=== PATIENT | female | born 1990 | race Caucasian/White ===

== ENCOUNTER 2016-11-02 09:16 | Emergency (ER) | payer OTHER ==
[~2016-11-02 09:16] MED LIST: /ACETCOD2T PO; /PREG50CA PO; ACET50TA OR; CEPH25SS OR; CYMB1CAP PO; IBUP200C PO; Lortab OR; NEUR300C PO; SOMA350T PO; ULTR200T2 PO; ULTR50TA PO; VICO5TAB16 PO; ZOFR4TAB3 SL
[2016-11-02] MEDS ORDERED: ONDANSETRON 4 MG ORAL DISINTEGRATING TAB (S0181) As Ordered ONE (09:55)
[2016-11-02] MEDS ORDERED: METOCLOPRAMIDE 10 MG TAB As Ordered ONE (09:55)
[2016-11-02] MEDS ORDERED: KETOROLAC 30 MG/ML VIAL (J1885) As Ordered ONE (09:56)
[2016-11-02] MEDS ORDERED: AUGMENTIN 875 MG TAB As Ordered ONE (10:25)
[2016-11-02] MEDS ORDERED: ACETAMINOPHEN 325 MG TAB As Ordered ONE (10:25)
--- NOTE | 2016-11-02 10:40 | EDDOCDS ---
Nurse's Notes [facility] Name: Lori Mendez Age: 26 yrs Sex: Female : 1990 Arrival Date: 11/02/2016 Time: 09:16 Bed PR Private MD: Shaka Lugo MD Diagnosis: Headache-Acute;Acute sinusitis Presentation: 11/02 09:22 Presenting complaint: Patient states: "woke up with a headache yesterday, it feels ten jc4 times worse today". This patient has no additional risk factors. Adult Sepsis Screening: The patient does not have new or worsening altered mentation. Patient's respiratory rate is less than 22. Systolic blood pressure is greater than 100. Patient has a qSOFA score of 0- Negative Sepsis Screen. Suicide/Homicide risk assessment- the patient denies having any suicidal and/or homicidal ideations and does not present with any other emotional, behavioral or mental health complaints. Status: Patient is not a volunteer services director or dependent. Transition of care: patient was not received from another setting of care. 09:22 Acuity: EPIFANIO Level 4 jc4 09:22 Method Of Arrival: Walkin/Carried/Asstd jc4 Triage Assessment: 09:25 Headache History: This headache is more severe than any previous headaches the patient jc4 has experienced. General: Appears uncomfortable. Pain: Pain currently is 8 out of 10 on a pain scale. Pain began 1 day ago Also complains of nausea, photophobia, shakiness. HIV screening NA for this visit Offered previously. Neurological: Level of Consciousness is awake, alert. RELOCATION MANAGER: 09:25 LMP N/A - control method jc4 Historical: - Allergies: Latex; - Home Meds: 1. naproxen 500 mg Oral TbEC 1 tab 2 times per day (Last dose: 10/30/2016) 2. tizanidine 2 mg oral cap 1 caps as needed (Last dose: 10/2016) 3. BCP 1 tab once daily (Last dose: 11/01/2016) - PMHx: Chronic Back pain; Migraine Headaches; - PSHx: ear surgery; nose surgery; back surgery; pelvis surgery; - Social history: Smoking status: Patient states former smoker of tobacco. No barriers to communication noted, The patient speaks fluent Indonesian. - Family history: Not pertinent. - : The pt / caregiver states he / she is not on anticoagulants. Home medication list is obtained from the patient. - Exposure Risk Screening:: None identified. Screenin:58 Screening information is obtained from the patient. Fall risk: No risks identified. jc4 Assistance ADL's: requires no assistance with activities of daily living. Abuse/DV Screen: The patient / caregiver reports he/she is: not in a situation that causes fear, pain or injury. Nutritional screening: No deficits noted. Advance Directives: Currently, there is no health care proxy. There is no active DNR order. There is no living will. There is no Power of Box Sealing Machine Catcher. home support is adequate. Assessment: 09:59 General: Appears uncomfortable, Behavior is cooperative, pleasant. Pain: Location: top jc4 of head, left frontal area and right frontal area Pain currently is 7 out of 10 on a pain scale. Neurological: Level of Consciousness is awake, alert, Oriented to person, place, time. EENT: Reports photophobia and noise sensitivity. Respiratory: Airway is patent Respiratory effort is even, unlabored, Respiratory pattern is regular, symmetrical. GI: Reports nausea. Derm: Skin is pink, warm & dry. Vital Signs: 09:17 BP 126 / 67; Pulse 81; Resp 18 S; Temp 97.4(O); Pulse Ox 98% on R/A; Weight 61.23 kg dd6 (R); Height 5 ft. 1 in. (154.94 cm) (R); 09:17 Body Mass Index 25.51 (61.23 kg, 154.94 cm) dd6 Vitals: 09:17 Log In Time: November 02, 2016 at 09:15. dd6 ED Course: 09:16 Patient visited by Isaiah Lazaro PCA. dd6 09:16 Patient moved to Waiting dd6 09:17 Shaka Lugo is Private Physician. dd6 09:18 Patient moved to Pre RCE dd6 09:22 Patient moved to Triage 1 jc4 09:23 Triage Initiated jc4 09:25 [facility] ef1 09:25 Lacy Muro MD is Attending Physician. ef1 09:25 Patient visited by Dina Brown PA-C. ef1 09:45 [place] [place] was scanned into [employer] and attached to record. jp5 09:57 Patient moved to PR / jc4 09:58 The patient / caregiver is instructed regarding the plan of care and ED course. jc4 10:00 Patient visited by Viridiana Walker RN. jc4 10:21 Patient visited by Dina Brown PA-C. ef1 10:25 ParishShaka is Referral Physician. ef1 10:39 No IV's were initiated during this patient's visit. No procedures done that require dls assistance. Administered Medications: 10:02 Drug: ketorolac 60 mg [ketorolac 30 mg/mL (1 mL) injection solution (2 mL)] Route: IM; ead Site: left gluteus; 10:02 Drug: Ondansetron ODT 4 mg [ondansetron 4 mg disintegrating tablet (1 tabs)] Route: PO; ead 10:02 Drug: Metoclopramide 10 mg [metoclopramide 10 mg tablet (1 tabs)] Route: PO; ead 10:28 Drug: Amoxicillin-Clavulanate 1 tabs [amoxicillin 875 mg-potassium clavulanate 125 mg jc4 tablet (1 tabs)] Route: PO; 10:28 Drug: Acetaminophen 975 mg [acetaminophen 325 mg tablet (3 tabs)] Route: PO; jc4 Order Results: There are currently no results for this order. Outcome: 10:25 Discharge ordered by Provider. ef1 10:38 Discharge Assessment: Patient awake, alert and oriented x 3. No cognitive and/or dls functional deficits noted. Patient verbalized understanding of disposition instructions. patient administered narcotics - no. The following High Risk Discharge criteria are identified: None. Discharged to home ambulatory. Condition: stable. Discharge instructions given to patient, Instructed on discharge instructions, follow up and referral plans. medication usage, Demonstrated understanding of instructions, medications, Pt was receptive of discharge instructions/ teaching. Prescriptions given X 4. No special radiology studies were completed. Property sent home with patient. 10:39 Patient left the ED. dls Signatures: Tennille Nunez RN RN dls Desormeau, Daniell, PROTOTYPE ASSEMBLER ELECTRONICS PROTOTYPE ASSEMBLER ELECTRONICS dd6 Dina Brown PA-C PA-C ef1 Viridiana Walker RN RN jcCyndi Rod RN RN ead Price, Jennalee jp5 SHANE
--- NOTE | 2016-11-02 10:40 | EDDOCDS ---
Physician Documentation [facility] Name: Lori Mendez Age: 26 yrs Sex: Female : 1990 Arrival Date: 11/02/2016 Time: 09:16 Bed PR Private MD: Shaka Lugo MD Disposition: 11/02/16 10:25 Discharged to Home/Self Care. Impression: Headache - Acute, Acute sinusitis. - Condition is Stable. - Discharge Instructions: General Headache Without Cause, Sinusitis, [id number]. - Prescriptions for Augmentin 875- 125 mg Oral Tablet - take 1 tablet by ORAL route every 12 hours for 10 days; 20 tablet. Naprosyn 500 mg Oral Tablet - take 1 tablet by ORAL route 2 times per day take with food; 30 tablet. Claritin 10 mg Oral Tablet - take 1 tablet by ORAL route once daily As needed; 30 tablet. ZOFRAN ODT 4 mg - dissolve 1 tablet by ORAL route 4 times per day As needed do not chew, do not swallow whole; 10 tablet. Mucinex 600 mg - take 1 tablet by ORAL route 2 times per day; 30 tablet. - Medication Reconciliation, Local Pharmacy Hours form. - Follow up: Shaka Lugo; When: 1 - 2 days; Reason: Recheck today's complaints, Continuance of care. Follow up: Emergency Department; Reason: Worsening of conditions. - Problem is new. - Symptoms have improved. Historical: - Allergies: Latex; - Home Meds: 1. naproxen 500 mg Oral TbEC 1 tab 2 times per day (Last dose: 10/30/2016) 2. tizanidine 2 mg oral cap 1 caps as needed (Last dose: 10/2016) 3. BCP 1 tab once daily (Last dose: 11/01/2016) - PMHx: Chronic Back pain; Migraine Headaches; - PSHx: ear surgery; nose surgery; back surgery; pelvis surgery; - Social history: Smoking status: Patient states former smoker of tobacco. No barriers to communication noted, The patient speaks fluent Japanese. - Family history: Not pertinent. - : The pt / caregiver states he / she is not on anticoagulants. Home medication list is obtained from the patient. - Exposure Risk Screening:: None identified. 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 1 in. (154.94 cm) (R); 09:17 Body Mass Index 25.51 (61.23 kg, 154.94 cm) dd6 MDM: 09:45 [facility] Payment Agreement was scanned into [employer] and attached to record. jp5 09:45 Financial registration complete. jp5 09:51 ketorolac 60 mg IM once ordered. ef1 09:51 Ondansetron ODT Oral Disintegrating Tablet 4 mg PO once ordered. ef1 09:51 Metoclopramide 10 mg PO once ordered. ef1 09:51 Amoxicillin-Clavulanate 875 mg 1 tabs PO once ordered. ef1 09:51 Ice Pack ordered. ef1 10:22 Acetaminophen Tablet 975 mg PO once ordered. ef1 10:22 Fluid Challenge ordered. ef1 Administered Medications: 10:02 Drug: ketorolac 60 mg [ketorolac 30 mg/mL (1 mL) injection solution (2 mL)] Route: IM; ead Site: left gluteus; 10:02 Drug: Ondansetron ODT 4 mg [ondansetron 4 mg disintegrating tablet (1 tabs)] Route: PO; ead 10:02 Drug: Metoclopramide 10 mg [metoclopramide 10 mg tablet (1 tabs)] Route: PO; ead 10:28 Drug: Amoxicillin-Clavulanate 1 tabs [amoxicillin 875 mg-potassium clavulanate 125 mg jc4 tablet (1 tabs)] Route: PO; 10:28 Drug: Acetaminophen 975 mg [acetaminophen 325 mg tablet (3 tabs)] Route: PO; jc4 Signatures: Tennille Nunez RN RN dls Feola, Erica, PA-C PAAnum ef1 Viridiana Walker RN RN jc4 Miguelito Neil jp5 Cyndi Ugarte RN The chart was reviewed and I authenticate all verbal orders and agree with the evaluation and treatment provided.Attachments: 09:45 [facility] Payment Agreement 5 MTDD
--- NOTE | 2016-11-04 11:40 | EDDOCDS ---
Nurse's Notes [facility] Name: Lori Mendez Age: 26 yrs Sex: Female : 1990 Arrival Date: 11/02/2016 Time: 09:16 Bed PR Private MD: Shaka Lugo MD Diagnosis: Headache-Acute;Acute sinusitis Presentation: 11/02 09:22 Presenting complaint: Patient states: "woke up with a headache yesterday, it feels ten jc4 times worse today". This patient has no additional risk factors. Adult Sepsis Screening: The patient does not have new or worsening altered mentation. Patient's respiratory rate is less than 22. Systolic blood pressure is greater than 100. Patient has a qSOFA score of 0- Negative Sepsis Screen. Suicide/Homicide risk assessment- the patient denies having any suicidal and/or homicidal ideations and does not present with any other emotional, behavioral or mental health complaints. Status: Patient is not a rehabilitation services counselor or dependent. Transition of care: patient was not received from another setting of care. 09:22 Acuity: EPIFANIO Level 4 jc4 09:22 Method Of Arrival: Walkin/Carried/Asstd jc4 Triage Assessment: 09:25 Headache History: This headache is more severe than any previous headaches the patient jc4 has experienced. General: Appears uncomfortable. Pain: Pain currently is 8 out of 10 on a pain scale. Pain began 1 day ago Also complains of nausea, photophobia, shakiness. HIV screening NA for this visit Offered previously. Neurological: Level of Consciousness is awake, alert. 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 naproxen 500 mg Oral TbEC 1 tab 2 times per day (Last dose: 10/30/2016) 2. tizanidine 2 mg oral cap 1 caps as needed (Last dose: 10/2016) 3. BCP 1 tab once daily (Last dose: 11/01/2016) - PMHx: Chronic Back pain; Migraine Headaches; - PSHx: ear surgery; nose surgery; back surgery; pelvis surgery; - Social history: Smoking status: Patient states former smoker of tobacco. No barriers to communication noted, The patient speaks fluent [place]an. - Family history: Not pertinent. - : The pt / caregiver states he / she is not on anticoagulants. Home medication list is obtained from the patient. - Exposure Risk Screening:: None identified. Screenin:58 Screening information is obtained from the patient. Fall risk: No risks identified. jc4 Assistance ADL's: requires no assistance with activities of daily living. Abuse/DV Screen: The patient / caregiver reports he/she is: not in a situation that causes fear, pain or injury. Nutritional screening: No deficits noted. Advance Directives: Currently, there is no health care proxy. There is no active DNR order. There is no living will. There is no Power of Bull Fiddle Player. home support is adequate. Assessment: 09:59 General: Appears uncomfortable, Behavior is cooperative, pleasant. Pain: Location: top jc4 of head, left frontal area and right frontal area Pain currently is 7 out of 10 on a pain scale. Neurological: Level of Consciousness is awake, alert, Oriented to person, place, time. EENT: Reports photophobia and noise sensitivity. Respiratory: Airway is patent Respiratory effort is even, unlabored, Respiratory pattern is regular, symmetrical. GI: Reports nausea. Derm: Skin is pink, warm & dry. Vital Signs: 09:17 BP 126 / 67; Pulse 81; Resp 18 S; Temp 97.4(O); Pulse Ox 98% on R/A; Weight 61.23 kg dd6 (R); Height 5 ft. 1 in. (154.94 cm) (R); 09:17 Body Mass Index 25.51 (61.23 kg, 154.94 cm) dd6 Vitals: 09:17 Log In Time: November 02, 2016 at 09:15. dd6 ED Course: 09:16 Patient visited by Isaiah Lazaro PCA. dd6 09:16 Patient moved to Waiting dd6 09:17 Shaka Lugo is Private Physician. dd6 09:18 Patient moved to Pre RCE dd6 09:22 Patient moved to Triage 1 jc4 09:23 Triage Initiated jc4 09:25 Dina Brown [facility]-C [facility]. ef1 09:25 Lacy Muro MD is Attending Physician. ef1 09:25 Patient visited by Dina Brown PA-C. ef1 09:45 [place] [place] Payment Agreement was scanned into [employer] and attached to record. jp5 09:57 Patient moved to PR2 / 26 jc4 09:58 The patient / caregiver is instructed regarding the plan of care and ED course. jc4 10:00 Patient visited by Viridiana Walker RN. jc4 10:21 Patient visited by Dina Brown PA-C. ef1 10:25 Parish Shaka is Referral Physician. ef1 10:39 No IV's were initiated during this patient's visit. No procedures done that require dls assistance. 14:46 T-Sheet-- Draft Copy was scanned into [employer] and attached to record. gb Administered Medications: 10:02 Drug: ketorolac 60 mg [ketorolac 30 mg/mL (1 mL) injection solution (2 mL)] Route: IM; ead Site: left gluteus; 10:02 Drug: Ondansetron ODT 4 mg [ondansetron 4 mg disintegrating tablet (1 tabs)] Route: PO; ead 10:02 Drug: Metoclopramide 10 mg [metoclopramide 10 mg tablet (1 tabs)] Route: PO; ead 10:28 Drug: Amoxicillin-Clavulanate 1 tabs [amoxicillin 875 mg-potassium clavulanate 125 mg jc4 tablet (1 tabs)] Route: PO; 10:28 Drug: Acetaminophen 975 mg [acetaminophen 325 mg tablet (3 tabs)] Route: PO; jc4 Order Results: There are currently no results for this order. Outcome: 10:25 Discharge ordered by Provider. ef1 10:38 Discharge Assessment: Patient awake, alert and oriented x 3. No cognitive and/or dls functional deficits noted. Patient verbalized understanding of disposition instructions. patient administered narcotics - no. The following High Risk Discharge criteria are identified: None. Discharged to home ambulatory. Condition: stable. Discharge instructions given to patient, Instructed on discharge instructions, follow up and referral plans. medication usage, Demonstrated understanding of instructions, medications, Pt was receptive of discharge instructions/ teaching. Prescriptions given X 4. No special radiology studies were completed. Property sent home with patient. 10:39 Patient left the ED. dls Signatures: Tennille Nunez RN RN dls Janet Car, Reg Reg gb Isaiah Lazaro, MANAGER TECHNICAL SALES MANAGER TECHNICAL SALES dd6 Dina Brown PA-C PA-C ef1 Viridiana Walker, RN RN jc4 Cyndi Ugarte,RN RN Miguelito Iyer jp5 Chart Complete MTDD
--- NOTE | 2016-11-04 11:40 | EDDOCDS ---
Physician Documentation [facility] Name: Lori Mendez Age: 26 yrs Sex: Female : 1990 Arrival Date: 11/02/2016 Time: 09:16 Bed PR Private MD: Shaka Lugo MD Disposition: 11/02/16 10:25 Discharged to Home/Self Care. Impression: Headache - Acute, Acute sinusitis. - Condition is Stable. - Discharge Instructions: General Headache Without Cause, Sinusitis, [id number]. - Prescriptions for Augmentin 875- 125 mg Oral Tablet - take 1 tablet by ORAL route every 12 hours for 10 days; 20 tablet. Naprosyn 500 mg Oral Tablet - take 1 tablet by ORAL route 2 times per day take with food; 30 tablet. Claritin 10 mg Oral Tablet - take 1 tablet by ORAL route once daily As needed; 30 tablet. ZOFRAN ODT 4 mg - dissolve 1 tablet by ORAL route 4 times per day As needed do not chew, do not swallow whole; 10 tablet. Mucinex 600 mg - take 1 tablet by ORAL route 2 times per day; 30 tablet. - Medication Reconciliation, Local Pharmacy Hours form. - Follow up: Shaka Lugo; When: 1 - 2 days; Reason: Recheck today's complaints, Continuance of care. Follow up: Emergency Department; Reason: Worsening of conditions. - Problem is new. - Symptoms have improved. Historical: - Allergies: Latex; - Home Meds: 1. naproxen 500 mg Oral TbEC 1 tab 2 times per day (Last dose: 10/30/2016) 2. tizanidine 2 mg oral cap 1 caps as needed (Last dose: 10/2016) 3. BCP 1 tab once daily (Last dose: 11/01/2016) - PMHx: Chronic Back pain; Migraine Headaches; - PSHx: ear surgery; nose surgery; back surgery; pelvis surgery; - Social history: Smoking status: Patient states former smoker of tobacco. No barriers to communication noted, The patient speaks fluent Turkish. - Family history: Not pertinent. - : The pt / caregiver states he / she is not on anticoagulants. Home medication list is obtained from the patient. - Exposure Risk Screening:: None identified. 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 1 in. (154.94 cm) (R); 09:17 Body Mass Index 25.51 (61.23 kg, 154.94 cm) dd6 MDM: 09:45 [place] [place] Agreement was scanned into [employer] and attached to record. 5 09:45 Financial registration complete. jp5 09:51 ketorolac 60 mg IM once ordered. ef1 09:51 Ondansetron ODT Oral Disintegrating Tablet 4 mg PO once ordered. ef1 09:51 Metoclopramide 10 mg PO once ordered. ef1 09:51 Amoxicillin-Clavulanate 875 mg 1 tabs PO once ordered. ef1 09:51 Ice Pack ordered. ef1 10:22 Acetaminophen Tablet 975 mg PO once ordered. ef1 10:22 Fluid Challenge ordered. ef1 14:46 T-Sheet-- Draft Copy was scanned into [employer] and attached to record. gb Administered Medications: 10:02 Drug: ketorolac 60 mg [ketorolac 30 mg/mL (1 mL) injection solution (2 mL)] Route: IM; ead Site: left gluteus; 10:02 Drug: Ondansetron ODT 4 mg [ondansetron 4 mg disintegrating tablet (1 tabs)] Route: PO; ead 10:02 Drug: Metoclopramide 10 mg [metoclopramide 10 mg tablet (1 tabs)] Route: PO; ead 10:28 Drug: Amoxicillin-Clavulanate 1 tabs [amoxicillin 875 mg-potassium clavulanate 125 mg jc4 tablet (1 tabs)] Route: PO; 10:28 Drug: Acetaminophen 975 mg [acetaminophen 325 mg tablet (3 tabs)] Route: PO; jc4 Signatures: Tennille Nunez RN Janet Scherer, Reg Reg gb Dina Brown, PARosa MariaC PAAnum ef1 Viridiana Walker RN RN jc4 Miguelito Neil 5 Cyndi Ugarte RN, ead The chart was reviewed and I authenticate all verbal orders and agree with the evaluation and treatment provided.Attachments: 09:45 [facility] Payment Agreement jp5 14:46 T-Sheet-- Draft Copy gb Chart Complete MTDD
--- NOTE | 2016-11-04 11:40 | EDDOCDS ---
Physician Documentation [facility] Name: Lori Mendez Age: 26 yrs Sex: Female : 1990 Arrival Date: 11/02/2016 Time: 09:16 Bed PR Private MD: Shaka Lugo MD Disposition: 11/02/16 10:25 Discharged to Home/Self Care. Impression: Headache - Acute, Acute sinusitis. - Condition is Stable. - Discharge Instructions: General Headache Without Cause, Sinusitis, [id number]. - Prescriptions for Augmentin 875- 125 mg Oral Tablet - take 1 tablet by ORAL route every 12 hours for 10 days; 20 tablet. Naprosyn 500 mg Oral Tablet - take 1 tablet by ORAL route 2 times per day take with food; 30 tablet. Claritin 10 mg Oral Tablet - take 1 tablet by ORAL route once daily As needed; 30 tablet. ZOFRAN ODT 4 mg - dissolve 1 tablet by ORAL route 4 times per day As needed do not chew, do not swallow whole; 10 tablet. Mucinex 600 mg - take 1 tablet by ORAL route 2 times per day; 30 tablet. - Medication Reconciliation, Local Pharmacy Hours form. - Follow up: Shaka Lugo; When: 1 - 2 days; Reason: Recheck today's complaints, Continuance of care. Follow up: Emergency Department; Reason: Worsening of conditions. - Problem is new. - Symptoms have improved. Historical: - Allergies: Latex; - Home Meds: 1. naproxen 500 mg Oral TbEC 1 tab 2 times per day (Last dose: 10/30/2016) 2. tizanidine 2 mg oral cap 1 caps as needed (Last dose: 10/2016) 3. BCP 1 tab once daily (Last dose: 11/01/2016) - PMHx: Chronic Back pain; Migraine Headaches; - PSHx: ear surgery; nose surgery; back surgery; pelvis surgery; - Social history: Smoking status: Patient states former smoker of tobacco. No barriers to communication noted, The patient speaks fluent Maltese. - Family history: Not pertinent. - : The pt / caregiver states he / she is not on anticoagulants. Home medication list is obtained from the patient. - Exposure Risk Screening:: None identified. NUT FORMER: 11/02 09:25 LMP N/A - control method jc4 Vital Signs: 09:17 BP 126 / 67; Pulse 81; Resp 18 S; Temp 97.4(O); Pulse Ox 98% on R/A; Weight 61.23 kg / dd6 134.99 lbs (R); Height 5 ft. 1 in. (154.94 cm) (R); 09:17 Body Mass Index 25.51 (61.23 kg, 154.94 cm) dd6 MDM: 09:45 [place] [place] Payment Agreement was scanned into [employer] and attached to record. 5 09:45 Financial registration complete. jp5 09:51 ketorolac 60 mg IM once ordered. ef1 09:51 Ondansetron ODT Oral Disintegrating Tablet 4 mg PO once ordered. ef1 09:51 Metoclopramide 10 mg PO once ordered. ef1 09:51 Amoxicillin-Clavulanate 875 mg 1 tabs PO once ordered. ef1 09:51 Ice Pack ordered. ef1 10:22 Acetaminophen Tablet 975 mg PO once ordered. ef1 10:22 Fluid Challenge ordered. ef1 14:46 T-Sheet-- Draft Copy was scanned into [employer] and attached to record. gb Administered Medications: 10:02 Drug: ketorolac 60 mg [ketorolac 30 mg/mL (1 mL) injection solution (2 mL)] Route: IM; ead Site: left gluteus; 10:02 Drug: Ondansetron ODT 4 mg [ondansetron 4 mg disintegrating tablet (1 tabs)] Route: PO; ead 10:02 Drug: Metoclopramide 10 mg [metoclopramide 10 mg tablet (1 tabs)] Route: PO; ead 10:28 Drug: Amoxicillin-Clavulanate 1 tabs [amoxicillin 875 mg-potassium clavulanate 125 mg jc4 tablet (1 tabs)] Route: PO; 10:28 Drug: Acetaminophen 975 mg [acetaminophen 325 mg tablet (3 tabs)] Route: PO; jc4 Signatures: Tennille Nunez RN Janet Scherer, Reg Reg gb Dina Brown, PARosa MariaC PAAnum ef1 Viridiana Walker RN RN jc4 Miguelito Neil 5 Cyndi Ugarte RN, ead The chart was reviewed and I authenticate all verbal orders and agree with the evaluation and treatment provided.Attachments: 09:45 [facility] Payment Agreement jp5 14:46 T-Sheet-- Draft Copy gb Chart Complete MTDD
== END 2016-11-02 10:39 | disposition home or self-care (01) ==
LOC: M ED 09:16
DX: J01.90 Acute sinusitis, unspecified (principal); R51 Headache; M54.9 Dorsalgia, unspecified; G89.29 Other chronic pain; Z87.891 Personal history of nicotine dependence; Z79.891 Long term (current) use of opiate analgesic; Z91.040 Latex allergy status
CPT/HCPCS: 96372; 99283; J1885

== ENCOUNTER → 2016-11-11 | Outpatient (CLI) | payer BC ==
[2016-11-11 16:45] LABS: INR 0.9
[2016-11-11 17:00] LABS: CONTROL LINE HCG INT CTR LINE PRESENT
== END ==
LOC: M LAB 15:45
PROVIDERS: ATTEND Physical Medicine & Rehabilitation
DX: M48.06 Spinal stenosis, lumbar region (principal)

== ENCOUNTER → 2017-12-02 | Outpatient (CLI) | payer BC ==
[2017-12-02 18:02] LABS: BASO % 0.5 % (0.0-1.0); EOS # 0.1 10^3/uL (0.0-0.50); EOS % 1.9 % (0.0-3.0); HEMOGLOBIN 13.1 g/dl (12.0-16.0); IMMATURE GRANULOCYTE % 0.2 % (0-3.0); LYMPH # 1.6 10^3/uL (1.5-6.5); LYMPH % 37.6 % (24.0-44.0); MEAN CORPUSCULAR HEMOGLOBIN 28.7 pg (27.0-33.0); MEAN CORPUSCULAR HGB CONC 32.8 g/dl (32.0-36.5); MEAN CORPUSCULAR VOLUME 87.5 fl (80.0-96.0); MONO # 0.3 10^3/uL (0.0-0.8); MONO % 8.1 % (0.0-5.0); NEUTROPHILS # 2.2 10^3/uL (1.8-7.7); NEUTROPHILS % 51.7 % (36.0-66.0); PLATELET COUNT, AUTOMATED 206 10^3/uL (150-450); RED BLOOD COUNT 4.57 10^6/uL (4.00-5.40); RED CELL DISTRIBUTION WIDTH 12.2 % (11.5-14.5); WHITE BLOOD COUNT 4.2 10^3/uL (4.0-10.0)
[2017-12-02 18:53] LABS: PROLACTIN 12.4 NG/ML
[2017-12-02 19:03] LABS: FREE T4 0.93 NG/DL (0.76-1.46)
== END ==
LOC: M WUC 10:53
DX: N92.0 Excessive and frequent menstruation with regular cycle (principal)
CPT/HCPCS: 84146

== ENCOUNTER → 2017-12-29 | Outpatient (REF) | payer BC, OTHER | LOC: M LAB REF 16:23 | DX: J02.9 Acute pharyngitis, unspecified (principal) | CPT/HCPCS: 87070 ==

== ENCOUNTER 2018-02-21 10:50 | Outpatient (RCR) | payer BC | END 2018-03-17 | LOC: M PT 10:50 | DX: Z51.89 Encounter for other specified aftercare (principal); M51.36 Other intervertebral disc degeneration, lumbar region; M47.816 Spondylosis without myelopathy or radiculopathy, lumbar region ==

== ENCOUNTER 2018-03-18 14:52 | Emergency (ER) | payer OTHER, BC ==
[2018-03-18] MEDS: KETOROLAC 60 MG/2 ML VIAL (J1885) IM (15:51)
== END 2018-03-18 17:00 | disposition home or self-care (01) ==
LOC: M ED 14:52
DX: S39.002A Unspecified injury of muscle, fascia and tendon of lower back, initial encounter (principal); X50.9XXA Other and unspecified overexertion or strenuous movements or postures, initial encounter; Y92.59 Other trade areas as the place of occurrence of the external cause; Y99.0 Civilian activity done for income or pay; Z91.040 Latex allergy status
CPT/HCPCS: J1885

== ENCOUNTER → 2018-12-01 | Outpatient (CLI) | payer OTHER ==
[~2018-12-01] MED LIST changes: +NORCOTAB PO; +ROBA500T PO
[2018-12-01 18:35] LABS: BASO % 0.2 % (0.0-1.0); EOS % 0.7 % (0.0-3.0); HEMATOCRIT 35.4 % (36.0-47.0); LYMPH # 1.5 10^3/uL (1.5-6.5); LYMPH % 24.7 % (24.0-44.0); MEAN CORPUSCULAR HEMOGLOBIN 29.1 pg (27.0-33.0); MEAN CORPUSCULAR HGB CONC 33.9 g/dl (32.0-36.5); MEAN CORPUSCULAR VOLUME 85.7 fl (80.0-96.0); MONO # 0.4 10^3/uL (0.0-0.8); MONO % 6.7 % (0.0-5.0); NEUTROPHILS # 4.2 10^3/uL (1.8-7.7); NEUTROPHILS % 67.5 % (36.0-66.0); PLATELET COUNT, AUTOMATED 236 10^3/uL (150-450); RED BLOOD COUNT 4.13 10^6/uL (4.00-5.40); WHITE BLOOD COUNT 6.2 10^3/uL (4.0-10.0)
[2018-12-01 19:38] LABS: CHLAMYDIA DNA AMPLIFICATION NEGATIVE (NEGATIVE); GC DNA AMPLIFICATION NEGATIVE (NEGATIVE)
[2018-12-02 12:43] LABS: HEPATITIS C VIRUS ABY INDEX 0.1 INDEX (<0.8); HIV 1&2 SCREEN CENTAUR NEGATIVE (NEGATIVE); RUBELLA IgG QUALITATIVE IMMUNE (IMMUNE)
== END ==
LOC: M SMT 15:05
PROVIDERS: ATTEND Advanced Practice Midwife
DX: Z36.89 Encounter for other specified antenatal screening (principal)

== ENCOUNTER → 2019-01-31 | Outpatient (CLI) | payer BC, OTHER ==
[~2019-01-31] MED LIST changes: -/ACETCOD2T PO; -/PREG50CA PO; +ACET1TAB15 PO; -ACET50TA OR; +HYDR-3715 PO; +LYRI50CA PO; +MAPA500T17 OR; -NORCOTAB PO; +ONDA-228 SL; -ZOFR4TAB3 SL
== END ==
LOC: M SMT 10:52
PROVIDERS: ATTEND Advanced Practice Midwife
DX: Z34.82 Encounter for supervision of other normal pregnancy, second trimester (principal)

== ENCOUNTER → 2019-02-20 | Outpatient (CLI) | payer MEDICAID ==
--- NOTE | 2019-02-20 14:08 | REP ---
REASON: anatomy. PRIORS: None. Multiple ultrasonographic image of the gravid uterus show a single living intrauterine gestation in the cephalic presentation. Doppler interrogation heart shows a heart rate of 160 beats per minute. The placenta is fundal and not low lying. The subjective amniotic fluid volume is within normal limits. The cervix measures 4.5 cm in length and is closed. Evaluation of the maternal adnexal spaces showed no abnormalities. BPD 4.5 cm = 19 weeks 3 days HC 16.2 cm = 19 weeks 0 days AC 13.4 cm = 18 weeks 6 days FL 2.9 cm = 19 weeks 0 days The estimated weight is 267 grams, which is at the 31st percentile for a 10-ygrk-5-day gestation age. Structures visualized as unremarkable are as follows: Thalami, cavum septum pellucidum, cerebellum, cisterna magna, cerebral ventricles, spine, kidneys, urinary bladder, stomach, cord insertion, three-vessel umbilical cord, extremities, and right ventricular outflow tract. Structures suboptimally visualized: upper lip, four-chamber heart, and left ventricular outflow tract. IMPRESSION: Single living intrauterine gestation as described above with an estimated gestational age of 19 weeks 1 day via composite criteria and estimated date of delivery 07/16/2019 by today's exam. No anomalies were detected, however, I recommend a followup examination to evaluate the upper lip, four chamber heart, and left ventricular outflow tract. Electronically Signed by Jose Kahn DO 02/20/2019 04:36 P
== END ==
LOC: M RAD 11:29
PROVIDERS: ATTEND Advanced Practice Midwife
DX: Z34.82 Encounter for supervision of other normal pregnancy, second trimester (principal); Z36.89 Encounter for other specified antenatal screening; Z3A.19 19 weeks gestation of pregnancy

== ENCOUNTER → 2019-03-17 | Outpatient (CLI) | payer MEDICAID ==
--- NOTE | 2019-03-17 13:44 | REP ---
Clinical: Anatomical evaluation. Comparison: 02/20/2019 . Findings: Examination demonstrates a single live intrauterine in variable presentation. motion is identified by technologist. Placenta is noted anterior/fundal and grade one without evidence for placenta previa or abruption. Amniotic fluid volume is normal. Cervix measures 4.1 cm in length and appears closed. No evidence for nuchal cord. Gestational age by LMP 23 week 0 days with KAREN 07/14/2019 . Gestational age by current measurements 22 weeks 3 days with KAREN 07/18/2019 . FHR equals 155 beats per minute. Estimated weight 503 grams ( 28th percentile). Anatomical assessment demonstrates normal structures including cranium, choroid plexus, cavum, cerebellum/posterior fossa, facial features, lungs, four-chamber heart/ventricular outflow tracts, diaphragm, stomach, cord insertion/three-vessel cord, kidneys/bladder, and extremities. Impression: Single live intrauterine in variable presentation demonstrating appropriate interval growth. In conjunction with prior examination anatomical assessment is complete and normal. No gross abnormalities are identified. Electronically Signed by Navi Graham MD 03/17/2019 01:36 P
== END ==
LOC: M RAD 11:30
PROVIDERS: ATTEND Advanced Practice Midwife
DX: Z34.02 Encounter for supervision of normal first pregnancy, second trimester (principal); Z36.89 Encounter for other specified antenatal screening; Z3A.23 23 weeks gestation of pregnancy

== ENCOUNTER → 2019-04-14 | Outpatient (CLI) | payer MEDICAID ==
[2019-04-14 13:20] LABS: BASO % 0.3 % (0.0-1.0); EOS # 0.1 10^3/uL (0.0-0.50); EOS % 1.6 % (0.0-3.0); HEMATOCRIT 34.2 % (36.0-47.0); HEMOGLOBIN 11.3 g/dl (12.0-15.5); LYMPH # 1.5 10^3/uL (1.5-6.5); LYMPH % 17.7 % (24.0-44.0); MEAN CORPUSCULAR HEMOGLOBIN 30.8 pg (27.0-33.0); MEAN CORPUSCULAR VOLUME 93.2 fl (80.0-96.0); MONO # 0.6 10^3/uL (0.0-0.8); MONO % 6.4 % (0.0-5.0); NEUTROPHILS # 6.3 10^3/uL (1.8-7.7); NEUTROPHILS % 73.2 % (36.0-66.0); PLATELET COUNT, AUTOMATED 202 10^3/uL (150-450); RED BLOOD COUNT 3.67 10^6/uL (4.00-5.40); WHITE BLOOD COUNT 8.6 10^3/uL (4.0-10.0)
== END ==
LOC: M SMT 08:57
PROVIDERS: ATTEND Specialist
DX: Z34.82 Encounter for supervision of other normal pregnancy, second trimester (principal); Z36.89 Encounter for other specified antenatal screening

== ENCOUNTER 2019-04-30 10:29 | Emergency (ER) | payer MEDICAID, OTHER ==
[~2019-04-30] VITALS: Ht 154.9 cm; Wt 81.8 kg
[2019-04-30 11:38] LABS: BLOOD UREA NITROGEN 10 MG/DL (7-18); CALCIUM LEVEL 8.5 MG/DL (8.5-10.1); CARBON DIOXIDE LEVEL 25 MEQ/L (21-32); CHLORIDE LEVEL 107 MEQ/L (98-107); CREATININE FOR GFR 0.52 MG/DL (0.55-1.30); GLOMERULAR FILTRATION RATE > 60.0 (>60); GLUCOSE, FASTING 85 MG/DL (70-100); POTASSIUM SERUM 4.6 MEQ/L (3.5-5.1); SODIUM LEVEL 140 MEQ/L (136-145)
[2019-04-30 12:42] VITALS: BP 121/64
--- NOTE | 2019-05-01 10:29 | REP ---
Duplex extremity venous ultrasound: Bilateral lower extremity. History: Bilateral leg pain. 30 weeks gestation. Question DVT. Findings: The deep veins are anechoic and fully compressible from the groin to the popliteal fossa in the left and right lower extremity. Color flow imaging is homogeneous. Spectral Doppler interrogation demonstrates intact respiratory variation in flow and normal manual augmentation of flow. There is no evidence of deep vein thrombosis. Impression: Negative bilateral lower extremity duplex venous ultrasound. No evidence of deep vein thrombosis. Electronically Signed by Ian Noriega MD 04/30/2019 12:05 P
== END 2019-04-30 12:47 | disposition home or self-care (01) ==
LOC: M ED 10:29
DX: O26.893 Other specified pregnancy related conditions, third trimester (principal); R25.2 Cramp and spasm; Z3A.30 30 weeks gestation of pregnancy; Z91.040 Latex allergy status

== ENCOUNTER → 2019-06-16 | Outpatient (CLI) | payer OTHER, MEDICAID ==
[~2019-06-16] MED LIST changes: +IBUP80TA PO; +OXYC1TAB23 PO
== END ==
LOC: M SMT 12:21
PROVIDERS: ATTEND Advanced Practice Midwife
DX: Z34.03 Encounter for supervision of normal first pregnancy, third trimester (principal); Z3A.00 Weeks of gestation of pregnancy not specified

== ENCOUNTER 2019-07-07 05:34 | Inpatient (IN) | payer OTHER ==
[~2019-07-07] VITALS: Ht 154.9 cm; Wt 89.2 kg
[2019-07-07] VITALS (8 sets, daily range): BP systolic 91–119; BP diastolic 52–59
[~2019-07-07 05:34] MED LIST changes: -IBUP80TA PO; -OXYC1TAB23 PO
[2019-07-07] MEDS ORDERED: LACTATED RINGER'S 1000 ML IV STA (08:08)
[2019-07-07] MEDS ORDERED: LR 1,000 ML IV SCH ×3 (08:08→12:00)
[2019-07-07] MEDS ORDERED: BICITRA 30ML SOLN UDC PO ONE (08:15)
[2019-07-07 08:31] LABS: HEMATOCRIT 33.6 % (36.0-47.0); HEMOGLOBIN 11.4 g/dl (12.0-15.5); MEAN CORPUSCULAR HEMOGLOBIN 30.9 pg (27.0-33.0); MEAN CORPUSCULAR HGB CONC 33.9 g/dl (32.0-36.5); MEAN CORPUSCULAR VOLUME 91.1 fl (80.0-96.0); PLATELET COUNT, AUTOMATED 232 10^3/uL (150-450); RED BLOOD COUNT 3.69 10^6/uL (4.00-5.40); WHITE BLOOD COUNT 10.7 10^3/uL (4.0-10.0)
[2019-07-07] MEDS: PRENATAL VITAMINS CHEWABLE TABLET PO SCH (09:00)
[2019-07-07] MEDS ORDERED: MORPHINE PRES-FREE INJ 10 MG/10 ML VIAL (J2274) As Ordered ONE (09:26)
[2019-07-07] MEDS ORDERED: ONDANSETRON 4MG/2ML VIAL (J2405) IV PRN ×3 (09:52→11:15)
[2019-07-07] MEDS ORDERED: NALOXONE INJ 0.4 MG/1 ML VIAL (J2310) IV PRN ×2 (09:52)
[2019-07-07] MEDS ORDERED: METOCLOPRAMIDE INJ 10MG/2ML VIAL (J2765) IV PRN ×2 (09:52→11:15)
[2019-07-07] MEDS ORDERED: NALBUPHINE HCL 10 MG/ML AMP (J2300) IV PRN (09:52)
[2019-07-07] MEDS ORDERED: diphenhydrAMINE INJ 50MG/ML VIAL (J1200) IV PRN (09:52)
[2019-07-07] MEDS ORDERED: PROPOFOL 200 MG/20 ML VIAL As Ordered ONE (10:31)
[2019-07-07] MEDS ORDERED: dexameTHASONE 4 MG/ML 1ML VIAL (J1100) As Ordered ONE (10:37)
[2019-07-07] MEDS ORDERED: ONDANSETRON 4MG/2ML VIAL (J2405) As Ordered ONE ×2 (10:37→10:55)
[2019-07-07] MEDS ORDERED: ACETAMINOPHEN 1000MG 100ML IV BTL (OFIRMEV) (J0131 PER 10MG) As Ordered ONE (11:08)
[2019-07-07] MEDS ORDERED: PHENYLephrine HCL 500 MCG/5 ML (100MCG/ML) SYRINGE (J2370) As Ordered ONE (11:08)
[2019-07-07] MEDS ORDERED: RHOGAM 300 MCG (1500 IU) INJ (J2790) IM SCH (11:15)
[2019-07-07] MEDS ORDERED: MEASLES,MUMPS,RUBELLA VACCINE INJ (MMR-II) (90707) SC SCH (11:15)
[2019-07-07] MEDS ORDERED: oxyCODONE 5MG TAB PO PRN (11:15)
[2019-07-07] MEDS ORDERED: fentaNYL 100 MCG/2 ML INJECTION (J3010) IV PRN (11:15)
[2019-07-07] MEDS ORDERED: PERCOCET 5MG/325MG TAB PO PRN ×2 (11:15)
[2019-07-07] MEDS ORDERED: OXYTOCIN DRIP 30 UNITS in APPROPRIATE DILUENT 1 EA IV SCH (12:00)
[2019-07-07] MEDS ORDERED: SLF 3 ML SYR IV PRN (12:30)
[2019-07-07] MEDS ORDERED: OXYTOCIN 30 UNITS IN 0.9% NaCl 500ML IV BAG (J2590) As Ordered ONE (12:41)
[2019-07-07] MEDS: SLF 3 ML SYR IV SCH ×2 (14:06→21:47)
[2019-07-07] MEDS: KETOROLAC 30 MG/ML VIAL (J1885) IV SCH ×2 (17:18→21:47)
[2019-07-07] MEDS ORDERED: DOCUSATE SODIUM 100 MG CAP PO PRN (21:00)
[2019-07-08 02:00] VITALS: BP 108/55
[2019-07-08] MEDS: KETOROLAC 30 MG/ML VIAL (J1885) IV SCH (02:27)
[2019-07-08 06:00] VITALS: BP 98/47
--- NOTE | 2019-07-08 06:28 | IPNPDOC ---
Text Note Date of Service The patient was seen on 07/08/19. NOTE Postop Day 1 S/p pLTCS secondary to arrest of dilation; uncomplicated S: pain well controlled, lochia and bleeding decreasing, voiding spontaneously, ambulating without assistance, tolerating regular diet. Breast feeding. O: vitals stable Heart: RRR, no murmurs Lungs: CTA BL Abd: Fundus firm at U, dressing dry and intact Ext: no edema, nontender, negative Radhames's sign bilaterally A/P: 29 yo G1 now P1. Postop day 1 s/p pLTCS. Hemodynamically stable, afebrile, good pain control. Recovering well. -Routine postoperative care and advancement. -Anticipate discharge tomorrow VS,Par[place]bone, I+O VS, Pankaje, I+O Laboratory Tests 07/07/19 08:18 Red Blood Count 3.69 L, Mean Corpuscular Volume 91.1, Mean Corpuscular Hemoglobi n 30.9, Mean Corpuscular Hemoglobin Concent 33.9, Red Cell Distribution Width 12.4 Vital Signs Date Time Temp Pulse Resp B/P (MAP) Pulse Ox O2 Delivery O2 Flow Rate FiO2 07/08/19 06:00 97.9 79 16 98/47 (84) 96 I&O- Last 24 Hours up to 6 AM 07/08/19 06:00 Intake Total 3125 ml Output Total 1725 ml Balance 1400 ml GME ATTESTATION GME ATTESTATION My faculty preceptor for this patient encounter was physically present during the encounter and was fully available. All aspects of the patient interview, examination, medical decision making process, and medical care plan development were reviewed and approved by the faculty preceptor. The faculty preceptor is aware and concurs with the plan as stated in the body of this note and will attest to such by his/her cosignature. JARED LARA DO Jul 08, 2019 06:28
[2019-07-08] MEDS: SLF 3 ML SYR IV SCH ×2 (06:32→12:59)
[2019-07-08 08:02] LABS: MEAN CORPUSCULAR HGB CONC 33.8 g/dl (32.0-36.5); MEAN CORPUSCULAR VOLUME 88.9 fl (80.0-96.0); PLATELET COUNT, AUTOMATED 171 10^3/uL (150-450); WHITE BLOOD COUNT 13.8 10^3/uL (4.0-10.0)
[2019-07-08 08:11] LABS: HEMOGLOBIN 8.1 g/dl (12.0-15.5)
[2019-07-08] MEDS: PRENATAL VITAMINS CHEWABLE TABLET PO SCH (08:50)
[2019-07-08 10:12] VITALS: BP 106/57
[2019-07-08] MEDS ORDERED: ACETAMINOPHEN 500 MG TAB PO PRN (11:30)
[2019-07-08] MEDS: IBUPROFEN 800 MG TAB PO SCH ×2 (12:58→20:22)
[2019-07-08 14:05] VITALS: BP 115/55
[2019-07-08 18:10] VITALS: BP 115/58
[2019-07-08 22:00] VITALS: BP 116/56
[2019-07-08] MEDS ORDERED: RIZATRIPTAN MLT 10 MG TAB PO PRN (22:15)
[2019-07-09 02:00] VITALS: BP 115/53
[2019-07-09] MEDS: IBUPROFEN 800 MG TAB PO SCH ×2 (05:22→12:35)
[2019-07-09 06:00] VITALS: BP 111/53
[2019-07-09] MEDS ORDERED: IBUP80TA PO (08:55)
[2019-07-09] MEDS ORDERED: OXYC1TAB23 PO (08:55)
[2019-07-09] MEDS ORDERED: INFLUENZA QUADRIVALENT PF VACCINE 0.5ML SYRINGE (90686) IM ONE (09:00)
[2019-07-09] MEDS ORDERED: ADACEL/BOOSTRIX VACCINE (DIPHTH/PERTUSS/ACELL/TETANUS)0.5ML SYR (90715) IM ONE (09:00)
[2019-07-09] MEDS: PRENATAL VITAMINS CHEWABLE TABLET PO SCH (09:59)
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
== END 2019-07-09 13:50 | disposition home or self-care (01) | DRG 540 ==
LOC: UNDOADMIN 05:34 → M LDI 05:34 → M OBS 13:00
PROVIDERS: ADMIT Specialist; ATTEND Specialist
PROC: 10D00Z1 Extraction of Products of Conception, Low, Open Approach (ICD-10-PCS; principal; 2019-07-07 09:30)
DX: O9A.22 Injury, poisoning and certain other consequences of external causes complicating childbirth (principal); Z3A.39 39 weeks gestation of pregnancy; Z37.0 Single live birth; S32.9XXS Fracture of unspecified parts of lumbosacral spine and pelvis, sequela; V89.2XXD Person injured in unspecified motor-vehicle accident, traffic, subsequent encounter

== ENCOUNTER → 2019-12-05 | Outpatient (CLI) | payer OTHER ==
[~2019-12-05] MED LIST changes: +IBUP80TA PO; +ISOVUE-370 76% 100ML VIAL (Q9967) As Ordered ONE; +OXYC1TAB23 PO
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
== END ==
LOC: M RAD 13:55
PROVIDERS: ATTEND Surgery Vascular Surgery
DX: T82.898A Other specified complication of vascular prosthetic devices, implants and grafts, initial encounter (principal); Y83.2 Surgical operation with anastomosis, bypass or graft as the cause of abnormal reaction of the patient, or of later complication, without mention of misadventure at the time of the procedure
CPT/HCPCS: 74177; Q9967

== ENCOUNTER → 2020-11-15 | Outpatient (CLI) | payer OTHER ==
[~2020-11-15] MED LIST changes: +E-Z-GAS II EFFERVESCENT PACKET (SODIUM BICARB./CITRIC ACID/SIMETHICONE) As Ordered ONE; +E-Z-HD 98% w/w 340GM SUSP BTL As Ordered ONE; +E-Z-PAQUE 96% w/w SUSP 176GM BTL As Ordered ONE; -ISOVUE-370 76% 100ML VIAL (Q9967) As Ordered ONE
--- NOTE | 2020-11-15 17:22 | REP ---
INDICATION: GASTRO-ESOPHAGEAL REFLUX DISEASE W/O ESOPHAGITIS. COMPARISON: Esophagram dated 09/19/2015. TECHNIQUE: This procedure was performed by Pepper Barbosa [facility], under the direct supervision of Dr. Noriega. Images were reviewed with Dr. Noriega prior to dictation. Liquid barium and gas producing crystals were given in the erect position, as well as liquid barium in the prone oblique position in order to perform a double contrast esophagram examination. FINDINGS: A single view PA chest x-ray is submitted as a weight yardage checker film. The superior mediastinal structures are midline. The heart size is within normal limits. The lungs are clear. There is an IVC filter in place. There is a developmental fusion of C2-C3. The oral and pharyngeal stages of deglutition were unremarkable. Esophageal transport is prompt and efficient and there is no evidence of esophagitis, stricture, or mucosal ring. There is evidence of a very small hiatal hernia. There was no gastroesophageal reflux noted . IMPRESSION: 1. Very small hiatal hernia. 0.1 minutes of fluoroscopy time was utilized for this procedure. Some fluoroscopic images are performed with last image hold technology. These images require no additional radiation. <Electronically signed by Pepper Barbosa > 11/15/20 1601 <Electronically signed by Varinder Noriega > 11/15/20 [id number]
== END ==
LOC: M RAD 07:51
PROVIDERS: ATTEND Otolaryngology
DX: K21.9 Gastro-esophageal reflux disease without esophagitis (principal)

== ENCOUNTER → 2021-01-06 | Outpatient (CLI) | payer OTHER ==
[~2021-01-06] MED LIST changes: -E-Z-GAS II EFFERVESCENT PACKET (SODIUM BICARB./CITRIC ACID/SIMETHICONE) As Ordered ONE; -E-Z-HD 98% w/w 340GM SUSP BTL As Ordered ONE; -E-Z-PAQUE 96% w/w SUSP 176GM BTL As Ordered ONE
--- NOTE | 2021-01-06 12:47 | REP ---
INDICATION: DORSALGIA. COMPARISON: 03/18/2018. TECHNIQUE: Five views lumbosacral spine performed. FINDINGS: There is no compression fracture or malalignment. There is normal lumbar lordosis with no spondylolysis or spondylolisthesis. The disc spaces are well preserved. Posterior elements are intact. There is mild curvature toward the right. IVC filter is noted to the right of midline with the superior tip at the level of the inferior endplate of L2. Metallic screw is again seen at the right sacroiliac joint. IUD is seen in the pelvis. IMPRESSION: Mild curvature of the lumbar spine convex to the right. <Electronically signed by Ayan Cutler > 01/06/21 [id number]
== END ==
LOC: M WUC 11:52
PROVIDERS: ATTEND Internal Medicine
DX: M54.9 Dorsalgia, unspecified (principal)

== ENCOUNTER → 2023-02-04 | Outpatient (CLI) | payer BC ==
[2023-02-04 13:12] LABS: HCG, SERUM QUALITATIVE POSITIVE (NEGATIVE)
[2023-02-04 13:13] LABS: HCG, SERUM QUANTITATIVE 6955.6 MIU/ML (<4.2)
== END ==
LOC: M LAB 11:10
PROVIDERS: ATTEND Obstetrics & Gynecology Obstetrics
DX: N91.2 Amenorrhea, unspecified (principal)

== ENCOUNTER → 2023-03-04 | Outpatient (CLI) | payer BC | LOC: M RAD 16:03 | PROVIDERS: ATTEND Obstetrics & Gynecology Obstetrics | DX: Z32.01 Encounter for pregnancy test, result positive (principal); Z3A.09 9 weeks gestation of pregnancy ==

== ENCOUNTER → 2023-03-23 | Outpatient (CLI) | payer BC ==
[2023-03-23 18:36] LABS: HEMATOCRIT 37.3 % (36.0-47.0); HEMOGLOBIN 12.4 g/dl (12.0-15.5); MEAN CORPUSCULAR HEMOGLOBIN 29.3 pg (27.0-33.0); MEAN CORPUSCULAR HGB CONC 33.2 g/dl (32.0-36.5); MEAN CORPUSCULAR VOLUME 88.2 fl (80.0-96.0); PLATELET COUNT, AUTOMATED 242 10^3/uL (150-450); RED BLOOD COUNT 4.23 10^6/uL (4.00-5.40); WHITE BLOOD COUNT 7.2 10^3/uL (4.0-10.0)
[2023-03-23 19:05] LABS: HIV 1&2 SCREEN NEGATIVE (NEGATIVE)
[2023-03-23 19:13] LABS: HEPATITIS C VIRUS ABY INDEX 0.1 INDEX (<0.8)
[2023-03-23 19:37] LABS: GC DNA AMPLIFICATION NEGATIVE (NEGATIVE)
== END ==
LOC: M PLALAB 15:05
PROVIDERS: ATTEND Advanced Practice Midwife
DX: Z36.9 Encounter for antenatal screening, unspecified (principal)

== ENCOUNTER → 2023-05-03 | Outpatient (CLI) | payer BC | LOC: M WHC 06:58 | PROVIDERS: ATTEND Obstetrics & Gynecology | DX: Z34.82 Encounter for supervision of other normal pregnancy, second trimester (principal); Z3A.19 19 weeks gestation of pregnancy ==

== ENCOUNTER → 2023-06-17 | Outpatient (CLI) | payer BC | LOC: M WHC 06:51 | PROVIDERS: ATTEND Obstetrics & Gynecology | DX: O34.211 Maternal care for low transverse scar from previous cesarean delivery (principal) ==

== ENCOUNTER → 2023-06-23 | Outpatient (CLI) | payer BC ==
[2023-06-23 14:01] LABS: HEMATOCRIT 35.6 % (36.0-47.0); HEMOGLOBIN 11.6 g/dl (12.0-15.5); MEAN CORPUSCULAR HEMOGLOBIN 30.6 pg (27.0-33.0); MEAN CORPUSCULAR HGB CONC 32.6 g/dl (32.0-36.5); MEAN CORPUSCULAR VOLUME 93.9 fl (80.0-96.0); PLATELET COUNT, AUTOMATED 209 10^3/uL (150-450); RED BLOOD COUNT 3.79 10^6/uL (4.00-5.40); WHITE BLOOD COUNT 8.6 10^3/uL (4.0-10.0)
== END ==
LOC: M PLALAB 09:22
PROVIDERS: ATTEND Obstetrics & Gynecology
DX: O34.211 Maternal care for low transverse scar from previous cesarean delivery (principal)

== ENCOUNTER → 2024-01-19 | Outpatient (REF) | payer BC ==
[~2024-01-19] MED LIST changes: +COLA100C5 PO; +PERCOCET PO; +PRENTAB9 PO
== END ==
LOC: M SFHCWAGY 14:57
PROVIDERS: ATTEND Obstetrics & Gynecology
DX: Z12.4 Encounter for screening for malignant neoplasm of cervix (principal)
CPT/HCPCS: 87624; G0123

== ENCOUNTER → 2024-08-02 | Outpatient (CLI) | payer BC | LOC: M WUC 13:09 | PROVIDERS: ATTEND Physician Assistant | DX: R10.819 Abdominal tenderness, unspecified site (principal); Z18.9 Retained foreign body fragments, unspecified material ==

== ENCOUNTER → 2025-05-08 | Outpatient (REF) | payer BC ==
[2025-05-08 18:19] LABS: BASO # 0.0 10^3/uL (0.0-0.2); BASO % 0.5 % (0.0-1.0); EOS # 0.1 10^3/uL (0.0-0.5); EOS % 1.4 % (0.0-3.0); LYMPH # 1.6 10^3/uL (1.5-5.0); LYMPH % 38.6 % (24.0-44.0); MONO # 0.4 10^3/uL (0.0-0.8); MONO % 9.9 % (2.0-8.0); NEUTROPHILS # 2.1 10^3/uL (1.5-8.5); NEUTROPHILS % 49.4 % (36.0-66.0); PLATELET COUNT, AUTOMATED 241 10^3/uL (150-450)
[2025-05-08 18:20] LABS: C REACTIVE PROTEIN QUANTITATIV < 0.50 MG/DL (<1.0); CPK CREATINE PHOSPHOKINASE 118 U/L (34-145); IRON (FE) 62 UG/DL (50-170); MAGNESIUM LEVEL 2.3 MG/DL (1.8-2.4); PERCENT SATURATION 17.4 % (13.2-45.0); PHOSPHORUS LEVEL 4.5 MG/DL (2.5-4.9)
[2025-05-08 18:22] LABS: TOTAL 25(OH) VITAMIN D 44.9 NG/ML (20.0-100.0); VITAMIN B12 LEVEL 874 PG/ML (211-911)
[2025-05-08 18:35] LABS: ERYTHROCYTE SEDIMENTATION RATE 18 mm/hr (0-20)
== END ==
LOC: M SFHCRHEU 14:56
PROVIDERS: ATTEND Internal Medicine
DX: M79.18 Myalgia, other site (principal); R53.83 Other fatigue; M25.50 Pain in unspecified joint